=== PATIENT | female | born 1985 | race African-American/Black ===

== ENCOUNTER 2017-01-16 17:01 | Emergency (ER) | payer OTHER ==
[~2017-01-16] VITALS: Ht 157.5 cm; Wt 56.7 kg
[2017-01-16] MEDS ORDERED: PROZAC10 MG PO (17:12)
[2017-01-16] MEDS ORDERED: NAPROSYN500 MG PO (17:38)
[2017-01-16] MEDS ORDERED: NORFLEX100 MG PO (17:38)
[2017-01-16 17:58] VITALS: BP 117/79
== END 2017-01-16 17:59 | disposition home or self-care (01) ==
LOC: ER 17:01
DX: S16.1XXA Strain of muscle, fascia and tendon at neck level, initial encounter (principal); M43.6 Torticollis; F17.210 Nicotine dependence, cigarettes, uncomplicated; X50.1XXA Overexertion from prolonged static or awkward postures, initial encounter; Y93.89 Activity, other specified; Y92.89 Other specified places as the place of occurrence of the external cause; Y99.0 Civilian activity done for income or pay

== ENCOUNTER 2019-08-27 20:10 | Emergency (ER) | payer BC, OTHER ==
[~2019-08-27] VITALS: Ht 157.5 cm; Wt 52.2 kg
[~2019-08-27 20:10] MED LIST: NAPROSYN500 MG PO; NORFLEX100 MG PO; PROZAC10 MG PO
[2019-08-27] MEDS ORDERED: NEURONTIN100 MG PO (20:52)
[2019-08-27] MEDS ORDERED: LORAZEPAM 0.50.5 MG PO (20:53)
[2019-08-27 21:18] LABS: ABSOLUTE NEUTROPHILS 3.2 thou/uL (1.4-8.2); BASOPHILS 0.9 % (0.0-2.0); EOSINOPHILS 3.1 % (0.0-3.0); HEMATOCRIT 35.3 % (37.0-47.0); HEMOGLOBIN 11.9 gm/dL (12.0-15.0); MCH 30.8 pg (26.0-34.0); MCHC 33.6 g/dL (28.0-37.0); MCV 91.7 fL (80.0-100.0); MONOCYTES 9.4 % (1.0-8.0); PLATELET COUNT 277 thou/uL (150-400); POLYS 46.6 % (36.0-66.0); RBC 3.86 mil/uL (4.20-5.00); RDW 13.8 % (10.5-14.5); WBC 6.8 thou/uL (4.0-11.0)
[2019-08-27 21:35] LABS: APTT 29.6 Seconds (24.5-32.8); INR 1.1; PROTIME 11.1 Seconds (9.3-11.4)
[2019-08-27 23:29] VITALS: BP 114/74
== END 2019-08-27 23:37 | disposition home or self-care (01) ==
LOC: ER 20:10
PROVIDERS: Emergency Medicine
DX: G97.82 Other postprocedural complications and disorders of nervous system (principal); R79.1 Abnormal coagulation profile; F17.210 Nicotine dependence, cigarettes, uncomplicated
CPT/HCPCS: 62110; 62900; 65075

== ENCOUNTER 2021-03-14 12:59 | Emergency (ER) | payer BC, OTHER ==
[~2021-03-14] VITALS: Ht 157.5 cm; Wt 49.9 kg
[~2021-03-14 12:59] MED LIST changes: +LORAZEPAM 0.50.5 MG PO; +NEURONTIN100 MG PO
[2021-03-14 14:05] LABS: ABSOLUTE NEUTROPHILS 3.2 thou/uL (1.4-8.2); BASOPHILS 0.9 % (0.0-2.0); EOSINOPHILS 2.7 % (0.0-3.0); HEMATOCRIT 35.7 % (37.0-47.0); HEMOGLOBIN 11.9 gm/dL (12.0-15.0); LYMPHOCYTES 33.2 % (24.0-44.0); MCH 30.8 pg (26.0-34.0); MCHC 33.5 g/dL (28.0-37.0); MCV 91.9 fL (80.0-100.0); MONOCYTES 11.2 % (1.0-8.0); PLATELET COUNT 265 thou/uL (150-400); RBC 3.88 mil/uL (4.20-5.00); RDW 13.9 % (10.5-14.5); WBC 6.2 thou/uL (4.0-11.0)
[2021-03-14 14:19] LABS: APTT 31.6 Seconds (24.5-32.8); INR 1.04; PROTIME 11.3 Seconds (10.5-12.1)
[2021-03-14 14:30] LABS: CALCIUM 8.9 mg/dL (8.5-10.1); CREATININE 0.8 mg/dL (0.6-1.0); POTASSIUM 3.6 mmol/L (3.5-5.1)
[2021-03-14 14:40] LABS: ALBUMIN 3.5 g/dL (3.4-5.0); TOTAL BILIRUBIN 0.2 mg/dL (0.2-1.0); TOTAL PROTEIN 7.7 g/dL (6.4-8.2)
[2021-03-14 17:12] VITALS: BP 97/70
--- NOTE | 2021-03-15 07:18 | EKG ---
[address] [address] ELECTROCARDIOGRAM REPORT Name: MELLO JAMES [facility] [id number] Admission: 03/14/21 Attend Phys: Discharge: 03/14/21 Date of : 89 Report #: [id number] [facility] ED Test Date: 2021-03-14 Test Time: 14:03:17 Pat Name: MELLO JAMES Department: Room: Gender: F [employer]: aryan : 1985 Requested By: Martin Garcia Order Number: [id number] MD: Nash Honeycutt Measurements Intervals [place] Rate: 70 P: 44 [place]: 222 QRS: 45 QRSD: 74 T: 41 QT: 395 QTc: 427 Interpretive Statements Sinus rhythm No previous ECG available for comparison Electronically Signed On 03-15-2021 7:18:44 [employer] by Nash Honeycutt [email or web address] <ELECTRONICALLY SIGNED> By: Nash Honeycutt MD, [facility] 03/15/21 0718 1403 1403 Nash Honeycutt MD, FACC /EPI
== END 2021-03-14 17:10 | disposition home or self-care (01) ==
LOC: ER 12:59
PROVIDERS: Emergency Medicine
DX: R20.0 Anesthesia of skin (principal); R53.1 Weakness; M79.602 Pain in left arm; F17.210 Nicotine dependence, cigarettes, uncomplicated; Z79.899 Other long term (current) drug therapy